=== PATIENT | female | born 2000 ===

== ENCOUNTER → 2022-11-23 11:31 | Outpatient (BNVA) | payer SELFPAY | PROVIDERS: Visit Provider Obstetrics & Gynecology | DX: Z34.93 Encounter for supervision of normal pregnancy, unspecified, third trimester (principal) | CPT/HCPCS: 81000 ==

== ENCOUNTER → 2022-12-06 10:02 | Outpatient (BNVA) | payer SELFPAY | PROVIDERS: Visit Provider Obstetrics & Gynecology | DX: Z34.93 Encounter for supervision of normal pregnancy, unspecified, third trimester (principal) | CPT/HCPCS: 81000 ==

== ENCOUNTER 2022-12-13 18:22 | Outpatient (CLI) | payer SELFPAY ==
[2022-12-13 18:22] VITALS: RESP 16; BMI 26.6
[2022-12-13 18:41] VITALS: BP 109/71; PULSE 90
[2022-12-13 18:55] VITALS: BP 111/74; PULSE 83
== END 2022-12-13 19:10 | disposition home or self-care (01) ==
LOC: OPOB 18:23 → OBGYN 18:25
PROVIDERS: Visit Provider Obstetrics & Gynecology
DX: O26.899 Other specified pregnancy related conditions, unspecified trimester (principal); Z3A.00 Weeks of gestation of pregnancy not specified; R10.9 Unspecified abdominal pain
CPT/HCPCS: 59025; 99211

== ENCOUNTER → 2022-12-21 11:40 | Outpatient (BNVA) | payer SELFPAY | PROVIDERS: Visit Provider Nurse Practitioner Women's Health | DX: Z34.93 Encounter for supervision of normal pregnancy, unspecified, third trimester (principal) | CPT/HCPCS: 80307; 81000; 85025; 87081; 87086 ==

== ENCOUNTER → 2022-12-25 14:29 | Outpatient (BNVA) | payer SELFPAY | PROVIDERS: Visit Provider Obstetrics & Gynecology | DX: Z34.93 Encounter for supervision of normal pregnancy, unspecified, third trimester (principal) | CPT/HCPCS: 76816 ==

== ENCOUNTER → 2022-12-28 11:50 | Outpatient (BNVA) | payer SELFPAY | PROVIDERS: Visit Provider Nurse Practitioner Women's Health | DX: Z34.93 Encounter for supervision of normal pregnancy, unspecified, third trimester (principal) | CPT/HCPCS: 81000; 85025; 87086 ==

== ENCOUNTER 2023-01-04 12:04 | Outpatient (CLI) | payer SELFPAY ==
[2023-01-04 12:42] LABS: Mean Corpuscular HGB Conc 32.6 g/dL (30-55); Mean Corpuscular Hemoglobin 27.2 pg (27-33); Mean Corpuscular Volume 83.5 fl (85-98); Platelet Count 291 10^3/cmm (157-399); Red Blood Count 4.19 10^6/uL (3.85-5.65); White Blood Count 9.06 10^3/uL (3.29-11.43)
[2023-01-04 13:19] LABS: Absolute Eosinophils 0.1 10^3/cmm (0.0-0.7); Absolute Neutrophil 7.2 10^3/cmm (1.4-6.5); Absolute Segmented Neutrophil 7.2 10/cmm (1.6-7.1); Eosinophils 1 %; Lymphocytes 16 %; Lymphocytes Absolute 1.4 10^3/cmm (1.2-3.4); Monocytes Absolute 0.4 10^3/cmm (0.1-0.6); Platelet Estimate Normal (Normal); Segmented Neutrophils 79 %; Total Cells Counted 100 (0-100)
== END 2023-01-04 12:05 | disposition home or self-care (01) ==
LOC: LAB 12:05
PROVIDERS: Visit Provider Obstetrics & Gynecology
DX: Z34.93 Encounter for supervision of normal pregnancy, unspecified, third trimester (principal)
CPT/HCPCS: 36415; 81000; 85007; 85027

== ENCOUNTER 2023-01-11 18:25 | Outpatient (CLI) | payer SELFPAY ==
[2023-01-11 18:43] VITALS: BP 108/71; PULSE 88
[2023-01-11 18:46] VITALS: BMI 26.5
[2023-01-11 19:04] VITALS: BP 95/55; PULSE 81
[2023-01-11 21:10] VITALS: BP 115/74; PULSE 87
[2023-01-11 21:20] VITALS: BP 115/74; PULSE 87
== END 2023-01-11 21:29 | disposition home or self-care (01) ==
LOC: OPOB 18:30 → OBGYN 18:31
PROVIDERS: Visit Provider Obstetrics & Gynecology
DX: O26.899 Other specified pregnancy related conditions, unspecified trimester (principal); Z3A.00 Weeks of gestation of pregnancy not specified; R10.9 Unspecified abdominal pain
CPT/HCPCS: 59025; 81000; 99211

== ENCOUNTER 2023-01-13 17:03 | Outpatient (CLI) | payer SELFPAY ==
[2023-01-13 16:57] VITALS: BMI 26.6
[2023-01-13 17:09] VITALS: BP 108/62; PULSE 98
[2023-01-13 18:56] VITALS: BP 105/80; PULSE 93
[2023-01-13 19:20] VITALS: BP 105/80; PULSE 93
--- NOTE | 2023-01-13 19:41 | PC.NURSE ---
Ivorian speaking packaging operator contacted by this nurse. Discharge instructions given via packaging operator. Patient verbalized understanding.
== END 2023-01-13 19:26 | disposition home or self-care (01) ==
LOC: OPOB 17:04 → OBGYN 17:05
PROVIDERS: Visit Provider Pharmacist
DX: O26.899 Other specified pregnancy related conditions, unspecified trimester (principal); Z3A.00 Weeks of gestation of pregnancy not specified; R10.9 Unspecified abdominal pain; N89.8 Other specified noninflammatory disorders of vagina
CPT/HCPCS: 59025; 99211

== ENCOUNTER 2023-01-14 03:18 | Inpatient (IN) | payer SELFPAY ==
[2023-01-14] VITALS (177 sets, daily range): BP systolic 87–138; BP diastolic 50–86; PULSE 68–136; RESP 16–18; TEMP 36.2–37.5; O2SAT 97–100; BMI 26.6
[2023-01-14 03:48] LABS: Basophils % 0.2 %; Eosinophils # 0.2 10^3/uL (0.0-0.8); Hematocrit 32.5 % (36-47); Lymphocytes # 1.8 10^3/uL (0.8-4.8); Mean Corpuscular Hemoglobin 26.9 pg (27-33); Mean Platelet Volume 10.3 fL (7.4-10.4); Monocytes # 0.7 10^3/uL (0.2-0.9); Monocytes % 8.1 %; Nucleated Red Blood Cells % 0 %; Platelet Count 277 10^3/cmm (157-399); Red Blood Count 3.87 10^6/uL (3.85-5.65); Red Cell Distribution Width 13.2 % (12.1-15.1); White Blood Count 8.85 10^3/uL (3.29-11.43)
[2023-01-14] MEDS: lactated ringers 1,000 ML 999 ML IV (04:04)
[2023-01-14] MEDS: ampicillin 2,000 MG in sodium chloride 0.9% (plus) 50 ML 100 MG IV (04:05)
[2023-01-14] MEDS: dextrose 5%-lactated ringers 1,000 ML 125 ML IV ×3 (05:11→14:07)
[2023-01-14] MEDS: ROPivacaine syringe 100 MG/50 ML SYRINGE 10 MG EPIDURAL ×2 (05:58→11:20)
--- NOTE | 2023-01-14 06:00 | P.ANESASSM_ITS ---
Pre-Anesthetic Assessment Height/Weight: Height 1.57 m Weight 66.224 kg Temp Pulse Resp BP Pulse Ox O2 Del Method 97.5 F L 86 18 112/70 100 Room Air 01/14/23 04:14 01/14/23 05:55 01/14/23 03:17 01/14/23 05:55 01/14/23 05:51 01/14/23 04:58 Preop Diagnosis: Active Labor, IUP Labor Epidural Familial anesthetic complications: None Was Beta Javi taken within 24 hours: N/A Last intake: >6hours Social No alcohol and No tobacco Exam alert, oriented x 3 and clear to auscultation bilaterally Airway Submandibular: within normal limits Cervical ROM: within normal limits Mallampati: Class II Dentition: full History/ROS No significant history except as noted Pulmonary None reported CV/HEM None reported None reported Hepatic None reported GI None reported Metabolic None reported Musc/skel None reported Neuropsych None reported Anesthetic Plan ASA status: 2 Anesthesia: Regional (specify below) Other: Labor Epidural Other Pertinent Information Interpreting service used. Facility portal checked for uzbek consent none available, warehouse coordinator called no uzbek consent available. Medications/Allergies Home Medications Medication Instructions Recorded Confirmed Last Taken Type vits no.126-ferrous fum 1 tab PO DAILY 01/04/23 01/14/23 01/13/23 History 28 mg iron-folic acid 800 mcg tablet (Classic ) Allergies Allergy/AdvReac Type Severity Reaction Status Date / Time No Known Allergies Allergy Verified 01/14/23 03:50 Current Medications Generic Name Dose Route Start Last Admin Trade Name Freq PRN Reason Stop Dose Admin Dextrose/Lactated Ringer's 1,000 mls @ 125 mls/hr 01/14/23 03:30 01/14/23 05:11 Dextrose 5%-Lactated Ringers IV 125 mls/hr .Q8H MARIAM Administration Lactated Ringer's 1,000 mls @ 999 mls/hr 01/14/23 03:44 01/14/23 04:04 Lactated Ringers IV 999 mls/hr .Q1H1M PRN Administration See label comments PFSH Anesthesia Medical History No pertinent past medical history neghx: htn,dm,thyroid,dvt/pe PCP: Surgical History No pertinent past surgical history neghx:htn,dm,thyroid,dvt/pe PCP: doesnt have one Family History Denies family history of Colon cancer Ovarian cancer Diabetes Heart disease Hyperlipidemia Breast cancer Hypertension Uterine cancer Thyroid disease Stroke Female Reproductive History : 2 Data Anesthesia 01/14/23 03:40 Short CBC 01/14/23 Range/Units 03:40 WBC 8.85 (3.29-11.43) 10^3/uL Hgb 10.40 L (11.27-16.99) g/dL Hct 32.5 L (36-47) % MCV 84.0 L (85-98) fl Plt Count 277 (157-399) 10^3/cmm Neut % (Auto) 69.0 % Neut # (Auto) 6.10 (1.8-7.7) 10^3/uL Cardiac Studies: No Data to Display Anesthesia Procedures Epidural Time Out Performed: Yes Consent: from patient, risks and benefits reviewed and patient agrees to proceed Lumbar Level: L3-L4 Epidural position: sitting Epidural procedure: sterile prep of area, 1% lidocaine to numb the area, negative for paresthesia passed, test dose given, 1.5% xylocaine 1:200k epi, placed PCEA, no systemic response, sterile dressing applied, L.U.D. no apparent complications and 0.2% Ropiavacaine @ mls/hr (10) Additional Comments: CLAUDIO at 5cm catheter threaded to 10cm
--- NOTE | 2023-01-14 06:54 | PC.NURSE ---
Interpretor phone line used through this shift for communication and teaching. Services Manager identification number [id number], [id number]
[2023-01-14] MEDS: ampicillin 1,000 MG in sodium chloride 0.9% (plus) 50 ML 100 MG IV ×2 (07:27→11:22)
--- NOTE | 2023-01-14 08:41 | PM.OPHPUD ---
Labor & Delivery H&P Update Date of Procedure: January 14, 2023 Date H&P Performed: 01/11/23 H&P update information: I have reviewed H&P completed within last 30 days, I have examined patient prior to procedure and Changes to prior documentation as noted here (/-3/VX/IM) Admission Diagnosis: Preop diagnosis: Active Labor, IUP
[2023-01-14] MEDS: ePHEDrine 50 mg/mL Inj 25 MG IM (09:17)
[2023-01-14] MEDS: oxytocin 30 UNIT/500 ML BAG IV (09:17)
[2023-01-14] MEDS: ondansetron 2 mg/ML SDV 2 mL 4 MG IVP (14:07)
[2023-01-14] MEDS: acetaminophen 325 mg Tablet 650 MG PO (14:50)
--- NOTE | 2023-01-14 15:42 | PM.DELIVERY ---
Delivery Note: Date of delivery: January 14, 2023 Pre-delivery diagnoses: Term Post-delivery diagnoses: Term delivered Procedure: Spontaneous vaginal delivery Delivery: The nurse called me at the clinic to notify me the patient was noted to be complete and pushing. At [] the patient delivered a viable 39-week infant weighing 2880 g with scores of 6 and 9 at one and five minutes, respectively. The vertex was delivered spontaneously over intact perineum.A nuchal cord was checked and [none/one] noted, and [relieved/delivered through/clamped and cut] around head as necessary. The infant was noted to have spontaneous cry and spontaneous movement of all four extremities. The cord was clamped x 2 and cut and noted to have 2 arteries and one vein. The was passed to the mother's abdomen where nursing personnel were in attendance. The placenta delivered intact spontaneously and the uterus was explored. 20 units of Pitocin was placed in the IV bag to firm the uterus. Examination of the cervix and vaginal vault did not reveal any lacerations. A vaginal pack was then placed. Examination of the perineum showed no lacerations. The vaginal pack was then removed. The patient tolerated this procedure well, and recovered in L&D with her in the LDR room. All sponge and needle counts were correct. History History History 3 Term 1 0 Miscarriages/Ectopic 1 Living Children 1 Coding Level of Care Code Acute Code for Chg Fwd Diagnoses
[2023-01-14] MEDS: ibuprofen 800 mg tablet PO (21:37)
[2023-01-14] MEDS: docusate sodium 100 mg Capsule PO (21:37)
[2023-01-14] MEDS: lanolin oint 7 gm 1 APPLIC TOPICAL (21:37)
[2023-01-15] MEDS: HYDROcodone-acetaminophen 5-325 mg Tablet PO (00:47)
[2023-01-15 01:15] VITALS: BP 102/66; PULSE 75; O2SAT 97
[2023-01-15 03:16] LABS: Hematocrit 25.3 % (36-47); Mean Corpuscular HGB Conc 31.6 g/dL (30-55); Mean Corpuscular Hemoglobin 27.4 pg (27-33); Mean Corpuscular Volume 86.6 fl (85-98); Mean Platelet Volume 10.3 fL (7.4-10.4); Platelet Count 209 10^3/cmm (157-399); Red Blood Count 2.92 10^6/uL (3.85-5.65); Red Cell Distribution Width 13.5 % (12.1-15.1); White Blood Count 14.58 10^3/uL (3.29-11.43)
[2023-01-15 05:00] VITALS: BP 92/57; PULSE 71; RESP 18; TEMP 36.8; O2SAT 98
--- NOTE | 2023-01-15 08:26 | ANE.PACU2 ---
Inpatient post-anesthesia follow up: Airway intact: Yes Vital signs: Temperature 98.2 F Pulse Rate 71 Respiratory Rate 18 Blood Pressure 92/57 Pulse Oximetry 98 Oxygen Delivery Me thod Room Air Oxygen Flow Rate Fraction of Inspir ed Oxygen Hydration adequate: Yes Nausea and vomiting: No Pain level: 2 Mental status: Baseline Additional Comments: Anes start 01/14/23 0513 Anes end 01/14/23 1600
[2023-01-15] MEDS: docusate sodium 100 mg Capsule PO (09:45)
[2023-01-15] MEDS: ibuprofen 800 mg tablet PO ×3 (09:45→21:24)
[2023-01-15] MEDS: prenatal vitamin Capsule 1 CAP PO (09:45)
[2023-01-15 10:00] VITALS: BP 99/65; PULSE 67; RESP 18; TEMP 36.6
--- NOTE | 2023-01-15 15:13 | P.DS_ITS ---
Discharge Providers CERTIFIED ALCOHOL AND DRUG COUNSELOR Date of Admission: 01/14/23 03:18 Date of Discharge: 01/15/23 Attending Provider at Admission: Jadon Posey MD Attending Provider at Discharge: Jadon Posey MD Primary CERTIFIED ALCOHOL AND DRUG COUNSELOR: Jadon Posey MD Reason for Visit Reason for Visit: Contractions Hospital Course Hospital Course Mrs. Rivera 22-year-old female with an IUP at 39 weeks admitted to labor and delivery in active labor. She progressed to have a spontaneous vaginal delivery without complications. and observation was uneventful. She is afebrile hemodynamically stable postoperative day 1. Tolerating diet well. Ambulating without difficulty. She was counseled regarding pelvic rest for 6 weeks (no sex, no tampons, no vaginal douches). Return to the emergency room if any fever, increased bleeding or pain. Information Peripartum Data: Infant Delivery Method: Vaginal Physical Exam Narrative: GA; alert and oriented x 3 HEENT: normal Breasts: engorged Nipples - skin intact Lungs; clear to auscultation Heart: regular rhythm, no murmurs. Abd: Appropriately tender. BS+. Uterine fundus below umbilicus. No Fundal Tenderness. Perineum: normal lochia. Extremities: no edema, no cyanosis, no tenderness. Urinary Catheter Management: Acosta: Cath Placed During This Visit: yes, but has since been removed by the nurse Reason for Continuing Indwelling Catheter: Decision to DC Catheter Urinary Catheter Date of Insertion: 01/14/23 Urinary Catheter Time of Insertion: 06:40 Date Urinary Catheter Removed: 01/14/23 Time Urinary Catheter Discontinued: 15:15 History History History 3 Term 1 0 Miscarriages/Ectopic 1 Living Children 1 Discharge Data Studies Completed and Pending Laboratory Results WBC 14.58 10^3/uL (3.29-11.43) H 01/15/23 03:13 RBC 2.92 10^6/uL (3.85-5.65) L 01/15/23 03:13 Hgb 8.00 g/dL (11.27-16.99) L 01/15/23 03:13 Hct 25.3 % (36-47) L 01/15/23 03:13 MCV 86.6 fl (85-98) 01/15/23 03:13 MCH 27.4 pg (27-33) 01/15/23 03:13 MCHC 31.6 g/dL (30-55) 01/15/23 03:13 RDW 13.5 % (12.1-15.1) 01/15/23 03:13 Plt Count 209 10^3/cmm (157-399) 01/15/23 03:13 MPV 10.3 fL (7.4-10.4) 01/15/23 03:13 Neut % (Auto) 69.0 % 01/14/23 03:40 Lymph % (Auto) 20.0 % 01/14/23 03:40 [place] % (Auto) 8.1 % 01/14/23 03:40 Eos % (Auto) 2.0 % 01/14/23 03:40 Baso % (Auto) 0.2 % 01/14/23 03:40 Neut # (Auto) 6.10 10^3/uL (1.8-7.7) 01/14/23 03:40 Lymph # (Auto) 1.8 10^3/uL (0.8-4.8) 01/14/23 03:40 [place] # (Auto) 0.7 10^3/uL (0.2-0.9) 01/14/23 03:40 Eos # (Auto) 0.2 10^3/uL (0.0-0.8) 01/14/23 03:40 Baso # (Auto) 0.0 10^3/uL (0.0-0.1) 01/14/23 03:40 Nucleated RBC % (auto) 0 % 01/14/23 03:40 Nucleated RBCs # 0.0 /100WBC 01/14/23 03:40 Vitals Last Vital Signs Temp 97.9 F 01/15/23 10:00 Pulse 67 01/15/23 10:00 Resp 18 01/15/23 10:00 BP 99/65 01/15/23 10:00 Pulse Ox 98 01/15/23 05:00 O2 Del Method Room Air 01/15/23 05:00 Results Labs OB ([facility]): Obstetrics US 12/25/22 Hct 25.3 % (36-47) L 01/15/23 Hgb 8.00 g/dL (11.27-16.99) L 01/15/23 Plt Count 209 10^3/cmm (157-399) 01/15/23 Urine Opiates Screen Negative ng/mL (Negative) 12/21/22 Ur Barbiturates Screen Negative ng/mL (Negative) 12/21/22 Ur Phencyclidine Scrn Negative ng/mL (Negative) 12/21/22 Ur Amphetamines Screen Negative ng/mL (Negative) 12/21/22 U Benzodiazepines Scrn Negative ng/mL (Negative) 12/21/22 Urine Cocaine Screen Negative ng/mL (Negative) 12/21/22 U Marijuana (THC) Screen Negative ng/mL (Negative) 12/21/22 Micro Urine Specimen 12/28/22 Discharge Plan Discharge Patient Disposition: Home Condition: Stable Prescriptions: New acetaminophen 325 mg capsule 325 mg PO Q4H PRN (Reason: fever or pain) Qty: 60 0RF ferrous sulfate [Iron (ferrous sulfate)] 325 mg (65 mg iron) tablet 325 mg PO BID Qty: 60 0RF ibuprofen 800 mg tablet 800 mg PO TID PRN (Reason: pain) Qty: 60 0RF docusate sodium [Colace] 100 mg capsule 100 mg PO BID Qty: 60 0RF Continued Classic 28 mg iron- 800 mcg tablet 1 tab PO DAILY Discharge Orders: Discharge Order (Routine); Ordered 01/15/23 Ordered By: Jadon Posey Referrals: Jadon Posey MD [Physician] - 2 weeks Discharge Diet: Usual diet Discharge Activity: Limit activity as instructed Patient Instructions: Opioid Safety, Caring for Your Baby (GEN), Bleeding (GEN), Vaginal Delivery (GEN), Your Powell's Appearance (GEN) Activity Restrictions/Additional Instructions: 1. Please call [facility] on next working day to make your appointment in 6 weeks. 2. Please stay home until you come back to the clinic on first post- hospatilization check up. 3. Please follow instructions on your medications CAREFULLY. 4. If you have abdominal incision, do not cover it unless dressing is necessary because of drainage. OK to shower, but avoid bath. Leave steri-strips until they fall off. If they are still on one week after surgery, you may remove them. 5. If you had vaginal surgery or vaginal repair, Dr. Posey may instruct you to take SITZ bath. 6. Yellow, blood tinged odorous vaginal discharge is usually normal after hysterectomy or vaginal surgeries. 7. No SEXUAL INTERCOURSE, tampons, or douches until you are completely released from the post-operative care. 8. Avoid constipation by eating right and maybe using some Metamucil or Milk of Magnesia. 9. All prescription refills are given during the working hours. Please do no wait till it runs out. Call the clinic at [phone] before your medication runs out. The clinic will get in touch with your doctor to prescribe medications if necessary. 10. Please remain within 40 mile radius from our hospital because emergencies do happen now and then during the post-operative period. 11. If you have stairs at home, take one step at a time slowly and minimize the number of trips. It helps to stay in one floor for the next few days. No lifting except what you can lift by one hand until you are released from the post-operative care. 12. Driving is discouraged until you are well healed. It may be 3-4 weeks before you feel strong enough to drive. You should be able to turn and look t hrough the rear window without pain and you should be able to push the brake pedal very hard without pain before you drive. No fast rules, but SAFETY should be your primary concern. DO NOT drive if you are on sedating medications such as narcotics. 13. Call the clinic (during working hours) to make urgent appointment or go to the Emergency room, if any of the following occurs: i. Vaginal bleeding becomes heavy, more than a period. ii. Incision becomes red and sore, or drains pus. iii. Your TEMPERATURE is over 100.4F or you have chill. iv. IV site becomes red and swollen (a little ``knot?? is usually OK) v. Persistent nausea and vomiting vi. Persistent constipation or diarrhea vii. Rash or allergic reaction to medications. Discharge Attestations CERTIFIED ALCOHOL AND DRUG COUNSELOR Time Spent in Discharge Care*: greater than 30 min Coding Level of Care Code Acute Code for Chg Fwd Diagnoses
[2023-01-15 16:00] VITALS: BP 100/59; PULSE 72; RESP 18; TEMP 36.6; TEMP 36.7; O2SAT 98
[2023-01-15 21:32] VITALS: BP 102/70; PULSE 76; RESP 16; TEMP 36.7; O2SAT 98
[2023-01-15 21:37] VITALS: BP 102/70; PULSE 76; RESP 16; TEMP 36.7; O2SAT 98
== END 2023-01-15 21:30 | disposition home or self-care (01) | DRG 807 ==
LOC: OBGYN 07:26
PROVIDERS: Admitting Provider Obstetrics & Gynecology; Visit Provider Obstetrics & Gynecology
DX: O80 Encounter for full-term uncomplicated delivery (principal); Z37.0 Single live birth; Z3A.39 39 weeks gestation of pregnancy
CPT/HCPCS: 36415; 51702; 59025; 59409; 83986; 85025; 85027; 96372; 96374; 99211; J0290; J2405; J2590; J2795; J3010; J7120; J7121